=== PATIENT | male | born 1995 | race Caucasian/White ===

== ENCOUNTER 2017-09-30 07:02 | Emergency (ER) | payer BC ==
[2017-09-30 07:10] VITALS: BP 116/69; PULSE 63; RESP 16; TEMP 98
--- NOTE | 2017-09-30 07:19 | ED ---
Lower Extremity Injury HPI - General Chief Complaint: Extremity Injury, Lower Stated Complaint: LEG PAIN Time Seen by Provider: 09/30/17 07:10 Source: patient, RN notes reviewed Mode of arrival: ambulatory Limitations: no limitations - History of Present Illness Initial Comments: 22-year-old male presents emergency Department chief complaint of right leg pain. Patient states that he was breaking up some pallets with his foot and heel region last weekend and has had persistent pain or sense. He states he feels it right along his brewster. He states certain movements and sometimes at rest it is worse. He denies any exact trauma to his brewster itself. He denies any paresthesias, discoloration to his leg. He's had no issues in the past. He has not been taking anything or applying anything to his brewster region to help. Patient denies any prior fractures. Patient has no foot pain or any pain proximal to his knee. - Related Data Previous Rx's Medication Instructions Recorded Ibuprofen [Motrin] 600 mg PO Q8HR PRN #30 tab 09/30/17 Allergies Allergy/AdvReac Type Severity Reaction Status Date / Time No Known Allergies Allergy Verified 09/30/17 07:07 Review of Systems ROS Statement: Those systems with pertinent positive or pertinent negative responses have been documented in the HPI. ROS Other: All systems not noted in ROS Statement are negative. Past Medical History Additional Past Medical History / Comment(s): hiatal hernia History of Any Multi-Drug Resistant Organisms: None Reported Past Surgical History: No Surgical Hx Reported Past Psychological History: No Psychological Hx Reported Smoking Status: Current every day smoker Past Alcohol Use History: Occasional Past Drug Use History: None Reported General Exam Limitations: no limitations General appearance: alert, in no apparent distress Head exam: Present: atraumatic, normocephalic, normal inspection Neck exam: Present: normal inspection, full ROM. Absent: tenderness, meningismus, lymphadenopathy Respiratory exam: Present: normal lung sounds bilaterally. Absent: respiratory distress, wheezes, rales, rhonchi, stridor Cardiovascular Exam: Present: regular rate, normal rhythm, normal heart sounds. Absent: systolic murmur, diastolic murmur, rubs, gallop, clicks Extremities exam: Present: other (Right lower leg over the tib-fib region there is some tenderness over the anterior to the [place] region there is no malleolar tenderness, there is no foot tenderness there is no ecchymosis, deformity there is equal pedal pulses of the lower extremity and equal warmth.) Course Vital Signs 09/30/17 07:07 Temperature 98.0 F Pulse Rate 63 Respiratory 16 Rate Blood Pressure 116/69 O2 Sat by Pulse 100 Oximetry Medical Decision Making - Medical Decision Making 22-year-old male presented for right leg pain. There is no acute fracture per radiology reading. Patient has right leg pain secondary to overuse, brewster splints. Patient will be advised to apply ice, take anti-inflammatories as directed and follow-up with PCP. Return parameters were discussed. Disposition Clinical Impression: Right leg pain, Brewster splint Disposition: HOME SELF-CARE Condition: Stable Instructions: Brewster Splints (ED) Additional Instructions: Please return to the Emergency Department if symptoms worsen or any other concerns. Prescriptions: Ibuprofen [Motrin] 600 mg PO Q8HR PRN #30 tab PRN Reason: Pain Is patient prescribed a controlled substance at d/c from ED?: No Referrals: None,Stated [Primary Care Provider] - 1-2 days Chris Flood MD [STAFF PHYSICIAN] - 1-2 days Time of Disposition: 07:58
--- NOTE | 2017-09-30 07:36 | XR ---
EXAMINATION TYPE: XR tibia fibula RT DATE OF EXAM: 09/30/2017 CLINICAL HISTORY: Dropping injury with pain TECHNIQUE: Two views of the right leg are obtained. COMPARISON: None. FINDINGS: There is no acute fracture or dislocation seen in the right tibia or fibula. The right kn ee and ankle joints appear within normal limits. The overlying soft tissue appears unremarkable. IMPRESSION: There is no acute fracture or dislocation seen in the right tibia or fibula.
== END 2017-09-30 08:07 | disposition home or self-care (01) ==
LOC: EC 07:02
DX: M79.604 Pain in right leg (principal); F17.200 Nicotine dependence, unspecified, uncomplicated; Z46.89 Encounter for fitting and adjustment of other specified devices
CPT/HCPCS: 99283

== ENCOUNTER 2017-10-08 22:33 | Emergency (ER) | payer BC ==
[2017-10-08 22:42] VITALS: BP 122/71; PULSE 77; RESP 18; TEMP 97.9
--- NOTE | 2017-10-08 23:33 | ED ---
General Adult HPI - General Chief complaint: Recheck/Abnormal Lab/Rx Stated complaint: Rt Leg Pain Time Seen by Provider: 10/08/17 23:08 Source: patient, RN notes reviewed Mode of arrival: ambulatory Limitations: no limitations - History of Present Illness Initial comments: This 22-year-old male who presents today for work clearance. Patient states that he was seen 2 weeks ago and diagnosed brewster splints. X-rays negative for fx. Patient states that he was instructed to rest, ice and elevate the legs taking NSAIDs for pain management as needed.. 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 Therefore patient presents today for work note. Patient denies any numbness, tingling, increasing pain of the right lower extremity, muscle weakness or any other symptoms at this time. - Related Data Home Medications Medication Instructions Recorded Confirmed Acetaminophen Tab [Tylenol Tab] 650 mg PO Q6H PRN 10/08/17 10/08/17 Albuterol Sulfate [Proair Hfa] 2 puff INHALATION RT-Q6H PRN 10/08/17 10/08/17 Allergies Allergy/AdvReac Type Severity Reaction Status Date / Time No Known Allergies Allergy Verified 10/08/17 22:58 Review of Systems ROS Statement: Those systems with pertinent positive or pertinent negative responses have been documented in the HPI. ROS Other: All systems not noted in ROS Statement are negative. Constitutional: Denies: as per HPI, fever, chills Eyes: Denies: eye pain ENT: Denies: ear pain, throat pain Respiratory: Denies: cough, dyspnea Cardiovascular: Denies: as per HPI, chest pain, palpitations Gastrointestinal: Denies: abdominal pain, nausea, vomiting Genitourinary: Denies: urgency, dysuria Musculoskeletal: Denies: back pain, joint swelling, arthralgia, myalgia Skin: Denies: rash, lesions Past Medical History Additional Past Medical History / Comment(s): hiatal hernia History of Any Multi-Drug Resistant Organisms: None Reported Past Surgical History: No Surgical Hx Reported Past Psychological History: No Psychological Hx Reported Smoking Status: Current every day smoker Past Alcohol Use History: Occasional Past Drug Use History: None Reported General Exam - General Exam Comments Initial Comments: General: The patient is awake and alert, in no distress, and does not appear acutely ill. Eye: Pupils are equal, round and reactive to light, extra-ocular movements are intact. No nystagmus. There is normal conjunctiva bilaterally. No signs of icterus. Ears, nose, mouth and throat: There are moist mucous membranes and no oral lesions. Neck: The neck is supple, there is no tenderness or JVD. Cardiovascular: There is a regular rate and rhythm. No murmur, rub or gallop is appreciated. Respiratory: Lungs are clear to auscultation, respirations are non-labored, breath sounds are equal. No wheezes, stridor, rales, or rhonchi. Musculoskeletal: Normal ROM LE equally b/l, no tenderness. Strength 5/5. Sensation intact. Pulses equal bilaterally 2+. Neurological: A&O x 3. CN II-XII intact, There are no obvious motor or sensory deficits. Coordination appears grossly intact. Speech is normal. Skin: Skin is warm and dry and no rashes or lesions are noted. Psychiatric: Cooperative, appropriate mood & affect, normal judgment. Limitations: no limitations Course Vital Signs 10/08/17 22:39 Temperature 97.9 F Pulse Rate 77 Respiratory 18 Rate Blood Pressure 122/71 O2 Sat by Pulse 98 Oximetry Medical Decision Making - Medical Decision Making MSK without abnormality. Pt given work clearance. Pt discharged in stable condition. Disposition Clinical Impression: Normal exam Disposition: HOME SELF-CARE Condition: Good Additional Instructions: Please use over the counter medication for pain and elevate/ice legs as needed, as discussed. Please follow-up with family doctor in the next 2 days of symptoms have not improved. Please return to emergency room if the symptoms increase or worsen or for any other concerns. Is patient prescribed a controlled substance at d/c from ED?: No Referrals: None,Stated [Primary Care Provider] - 1-2 days Time of Disposition: 23:33
== END 2017-10-08 23:40 | disposition home or self-care (01) ==
LOC: EC 22:33
DX: Z00.00 Encounter for general adult medical examination without abnormal findings (principal); F17.200 Nicotine dependence, unspecified, uncomplicated
CPT/HCPCS: 99283

== ENCOUNTER 2019-02-17 05:36 | Emergency (ER) | payer BC ==
[2019-02-17 06:00] VITALS: BP 149/80; PULSE 89; RESP 20; TEMP 98.5
[2019-02-17] MEDS ORDERED: KETOROLAC 60 MG/2 ML VIAL IM STA (06:25)
[2019-02-17] MEDS ORDERED: ACET/COD 300 MG/30 MG STARTER PACK 6 TAB BTL PO STA (06:25)
--- NOTE | 2019-02-17 06:29 | ED ---
Back Pain HPI - General Chief Complaint: Back Pain/Injury Stated Complaint: back pain Time Seen by Provider: 02/17/19 06:18 Source: patient, family, RN notes reviewed Limitations: no limitations - History of Present Illness Initial Comments: 24-year-old male presents emergency from chief complaint low back pain. Patient states that he starts having a little bit issues in his low back states that he was bending over, and sneeze and states he felt a pull, pop in his left low back. He states he has numbness down down his left leg. Patient denies any bowel bladder incontinence or retention. Denies any saddle anesthesias. Patient states it just feels like he slipped on the playground. He is able to ambulate without difficulty. He denies any fevers chills no abdominal pain. Did not take any medications for the symptoms. He states he did have improvement with heat and ice. - Related Data Home Medications Medication Instructions Recorded Confirmed Acetaminophen Tab [Tylenol Tab] 650 mg PO Q6H PRN 10/08/17 10/08/17 Albuterol Sulfate [Proair Hfa] 2 puff INHALATION RT-Q6H PRN 10/08/17 10/08/17 Previous Rx's Medication Instructions Recorded Cyclobenzaprine [Flexeril] 10 mg PO TID PRN #15 tab 02/17/19 Ibuprofen [Motrin] 600 mg PO Q8HR PRN #30 tab 02/17/19 Allergies Allergy/AdvReac Type Severity Reaction Status Date / Time No Known Allergies Allergy Verified 02/17/19 06:00 Review of Systems ROS Statement: Those systems with pertinent positive or pertinent negative responses have been documented in the HPI. ROS Other: All systems not noted in ROS Statement are negative. Past Medical History Additional Past Medical History / Comment(s): hiatal hernia, back pain History of Any Multi-Drug Resistant Organisms: None Reported Past Surgical History: No Surgical Hx Reported Past Psychological History: No Psychological Hx Reported Smoking Status: Current every day smoker Past Alcohol Use History: Occasional Past Drug Use History: Marijuana General Exam Limitations: no limitations General appearance: alert, in no apparent distress Head exam: Present: atraumatic, normocephalic, normal inspection Eye exam: Present: normal appearance, PERRL, EOMI. Absent: scleral icterus, conjunctival injection, periorbital swelling ENT exam: Present: normal exam, normal oropharynx, mucous membranes moist Neck exam: Present: normal inspection, full ROM. Absent: tenderness, meningismus, lymphadenopathy Respiratory exam: Present: normal lung sounds bilaterally. Absent: respiratory distress, wheezes, rales, rhonchi, stridor Cardiovascular Exam: Present: regular rate, normal rhythm, normal heart sounds. Absent: systolic murmur, diastolic murmur, rubs, gallop, clicks Extremities exam: Present: normal inspection, full ROM, normal capillary refill, other (Lower extremities neurovascular intact full strength full range of motion equal color equal warmth). Absent: tenderness, pedal edema, joint swelling, calf tenderness Back exam: Present: full ROM, tenderness (Mild left lower lumbar), paraspinal tenderness. Absent: vertebral tenderness Neurological exam: Present: alert, oriented X3, reflexes normal. Absent: motor sensory deficit Course Vital Signs 02/17/19 05:56 Temperature 98.5 F Pulse Rate 89 Respiratory 20 Rate Blood Pressure 149/80 O2 Sat by Pulse 100 Oximetry Medical Decision Making - Medical Decision Making Patient has left lower lumbar radiculopathy with no red flag symptoms. Patient will be given symptomatic control and close follow-up. Return parameters were discussed Disposition Clinical Impression: Strain of lumbar region, Lumbar radiculopathy Disposition: HOME SELF-CARE Condition: Stable Instructions (If sedation given, give patient instructions): Acute Low Back Pain (ED) Additional Instructions: Please return to the Emergency Department if symptoms worsen or any other concerns. Prescriptions: Cyclobenzaprine [Flexeril] 10 mg PO TID PRN #15 tab PRN Reason: Muscle Spasm Ibuprofen [Motrin] 600 mg PO Q8HR PRN #30 tab PRN Reason: Pain Is patient prescribed a controlled substance at d/c from ED?: No Referrals: None,Stated [Primary Care Provider] - 1-2 days Time of Disposition: 06:28
== END 2019-02-17 06:51 | disposition home or self-care (01) ==
LOC: EC 05:36
DX: S39.012A Strain of muscle, fascia and tendon of lower back, initial encounter (principal); M54.16 Radiculopathy, lumbar region; F17.200 Nicotine dependence, unspecified, uncomplicated
CPT/HCPCS: 99283; 96372; J1885